=== PATIENT | male | born 1950 | race Caucasian/White ===

== ENCOUNTER 2017-01-31 16:43 | Emergency (ER) | payer MEDICARE, OTHER ==
[2017-01-31] MEDS ORDERED: LIDOCAINE-MPF 1% 5 ML VIAL ONE (17:47)
[2017-01-31] MEDS ORDERED: TETANUS/DIPHTHERIA/PERTUSSIS 0.5 ML SYRINGE IM ONE ×2 (18:07→18:09)
== END 2017-01-31 18:42 | disposition home or self-care (01) ==
DX: S01.01XA Laceration without foreign body of scalp, initial encounter (principal); W22.8XXA Striking against or struck by other objects, initial encounter; Y93.89 Activity, other specified; Y92.009 Unspecified place in unspecified non-institutional (private) residence as the place of occurrence of the external cause; Z23 Encounter for immunization

== ENCOUNTER 2023-03-05 09:03 | Outpatient (CLI) | payer MEDICARE, OTHER ==
--- NOTE | 2023-03-05 16:53 | XRAY Report ---
PROCEDURE: Tib/Fib RT INDICATIONS: CONTUSION OF RT LOWER LEG INITIAL ENCOUNTER TECHNIQUE: 2 views of the tibia and fibula were acquired. COMPARISON: None. FINDINGS: Bones: There is cortical irregularity and possible periosteal reaction involving the medial margin o f the right proximal tibia. This measures approximately This is noted near the medial tibial plateau. No definite fracture seen. Remainder of the osseous 1.9 cm in size. Structures appear intact. Soft tissues: No suspicious soft tissue calcifications or masses. IMPRESSION: Cortical irregularity with possible periosteal reaction involving the proximal right tibia at the lev el of the medial tibial plateau. Recommend correlation with physical examination. Otherwise, no acute fracture seen. Recommend further evaluation with dedicated radiographic evaluation of the right knee. If findings pe rsist, further characterization with cross-sectional imaging using CT or MRI can be considered. Reviewed by: Perez Case MD on 03/05/2023 4:52 PM PDT Approved by: Perez Case MD on 03/05/2023 4:52 PM PDT Station ID: [id number]
== END 2023-03-05 09:04 | disposition home or self-care (01) ==
LOC: DI 09:03
PROVIDERS: ATTEND Family Medicine
DX: S80.11XA Contusion of right lower leg, initial encounter (principal)

== ENCOUNTER 2023-10-08 07:40 | Inpatient (IN) | payer MEDICARE, OTHER ==
--- NOTE | 2023-10-08 07:46 | ED Physician Documentation ---
PD HPI FOCAL NEURO - Stated complaint Stated Complaint: RT SIDE PARALYSIS - History obtained from History obtained from: Patient - History of Present Illness Timing - onset: How many hours ago (1) Timing - duration: Hours (onset at 6:55 this morning, felt okay on first awakening and had onset right hand fumbly and numb while sitting at table, noted clock at 6:55 AM. feels visual acuity off as well.) Timing - details: Abrupt onset, Still present Severity of deficit: Moderate Weakness: Face, Arm, Leg, Right Numbness: Face, Arm, Leg, Right Associated symptoms: No: Headache, Nausea / vomiting, Head injury, Chest pain Contributing factors: negative: Anticoagulated, Atrial fibrillation Baseline status: positive: A&OX3, ambulatory, indep Similar symptoms before: Has not had sx before Review of Systems Constitutional: denies: Fever, Chills Nose: denies: Rhinorrhea / runny nose, Congestion Throat: denies: Sore throat Respiratory: denies: Cough Neurologic: reports: Focal weakness, Numbness, Difficulty speaking. denies: Generalized weakness, Headache, Head injury PD PAST MEDICAL HISTORY - Past Medical History Cardiovascular: High cholesterol Respiratory: None Neuro: None Endocrine/Autoimmune: None, Other - Past Surgical History Past Surgical History: Yes General: Appendectomy - Present Medications Home Medications: Ambulatory Orders Medication Instructions Recorded Confirmed Adalimumab [Humira(Cf) Pen] 40 mg SUBQ .EVERY OTHER WEEK 08/08/23 08/08/23 Atorvastatin [Lipitor] 20 mg PO DAILY 08/08/23 08/08/23 Folic Acid 1 mg PO DAILY 08/08/23 08/08/23 Methotrexate [Methotrexate Sodium] 2.5 mg PO .WEEKLY 08/08/23 08/08/23 Prednisone [Mya] 3 mg PO DAILY 08/08/23 08/08/23 - Allergies Allergies/Adverse Reactions: Allergies Allergy/AdvReac Type Severity Reaction Status Date / Time No Known Drug Allergies Allergy Verified 08/08/23 09:13 - Social History Does the pt smoke?: No Smoking Status: Never smoker Does the pt drink ETOH?: Yes Does the pt have substance abuse?: No - Immunizations Immunizations are current?: No PD ED PE NORMAL - Vitals Vital signs reviewed: Yes - General General: Alert and oriented X 3, No acute distress, Well developed/nourished - HEENT HEENT: Atraumatic - Neck Neck: Supple, no meningeal sign, No adenopathy, No bruit - Cardiac Cardiac: RRR, No murmur - Respiratory Respiratory: No respiratory distress, Clear bilaterally - Abdomen Abdomen: Soft, Non tender - Derm Derm: Normal color, Warm and dry - Neuro Neuro: Other (see NIHSS score. ). No: Normal speech (somewhat thick sounding pronunciation, but content is good. Unlabored breathing. Appears able to swallow saliva. ) Eye Opening: Spontaneous Motor: Obeys Commands Verbal: Oriented GCS Score: 15 NIHSS - Level of Consciousness Level of consciousness: (0) Alert, Keenly responsive LOC Questions: (0) Answers both Q's correct LOC Commands: (0) Performs both correctly - Gaze Best Gaze: (0) Normal - Visual Visual: (3) Bilateral Hemianopia - Facial Palsy Facial Palsy: (1) Minor paralysis - Motor Arms (both separate) Motor Arm (right): (1) Drift Motor Arm (left): (0) No drift - Motor Legs (both separate) Motor Leg (right): (1) Drift Motor Leg (left): (0) No drift - Limb Ataxia Limb Ataxia: (2) Present in 2 limbs - Sensory Sensory: (1) Fsve-xg-ocjicjhq loss - Best Language Best Language: (0) No aphasia - Dysarthria Dysarthria: (1) Cguv-bn-wujdxmhh dysarthria - Extinction and Inattention (formally neg Extinction and inattention: (0) No abnormality - Total Score/Results Total Score/Result: 10 Results - Vitals Vitals: Vital Signs - 24 hr 10/08/23 10/08/23 07:52 08:46 Temperature 36.5 C Heart Rate 80 70 Respiratory 18 18 Rate Blood Pressure 159/100 H 123/86 H O2 Saturation 96 96 Oxygen O2 Source Room air - EKG (time done) 08:38 EKG releavant findings:: EKG personally interpreted by author of this note. Relevant findings are: Rate: Rate (enter#) (64) Rhythm: NSR Lyons: Normal Intervals: Normal MT QRS: Normal Ischemia: Normal ST segments. No: ST elevation c/w ischemia, ST depression - Labs Labs: Laboratory Tests 10/08/23 10/08/23 10/08/23 08:01 08:04 08:04 WBC 7.4 RBC 5.46 Hgb 16.7 Hct 50.9 MCV 93.2 MCH 30.6 MCHC 32.8 RDW 13.4 Plt Count 167 MPV 9.4 Neut # (Auto) 4.9 Lymph # (Auto) 1.6 [place] # (Auto) 0.7 Eos # (Auto) 0.1 Baso # (Auto) 0.1 Absolute Nucleated RBC 0.00 Nucleated RBC % 0.0 Sodium 136 Potassium 3.9 Chloride 105 Carbon Dioxide 26 Anion Gap 5.0 L BUN 17 Creatinine 0.8 Estimated GFR (MDRD) 95 Glucose 133 H POC Whole Bld Glucose 127 H Calcium 9.5 Magnesium 1.7 Total Bilirubin 0.9 AST 30 ALT 36 Alkaline Phosphatase 69 Total Protein 6.3 L Albumin 4.1 Globulin 2.2 Albumin/Globulin Ratio 1.9 Lipase 23 - Rads (name of study) head CT Relevant Findings:: Prelim report reviewed, Discussed with rads (hypodensity area right posterior circulation area c/w acute CVA. no Bleed. ) angio head and neck Relevant Findings:: Prelim report reviewed (no LVO; some diminished flow left posterior circulation. ), EMP independent interpretation of test PD Medical Decision Making - ED course Complexity details: reviewed results, considered differential (Onset of right- sided numbness and weakness along with partial field vision loss this morning. Able to talk in coherent sentences and follow commands. New symptoms for him. Presume acute stroke.), d/w patient, d/w philatelic consultant (Surinder Ulrich, stroke neurologist - not candidate for thrombolytics due to ischemic changes already showing on CT, and no LVO on CTA. treat for CVA. ) ED course: The patient was assessed immediately and sent to CT for CT of the head as well as angiograms. There was already some findings of hypodensity consistent with new infarct on the CT presuming his symptoms were more likely developed through the night and just noticed when he woke this morning. Consult with stroke neurology Dr. Surinder Ulrich felt that this was a contraindication to thrombolytics. There were no large vessel occlusions either so no endovascular intervention. The neurologist did give the go ahead for antiplatelets of both aspirin and Plavix. Continue stroke evaluation. It subsequently did talk with the hospitalist when beds were becoming available in the hospital and orders will be written for the patient. EKG was normal without any signs of fibrillation. There is no heart murmurs. Basic blood tests of CBC and chemistry panel did not show any acute abnormalities. Blood pressure was in a good range and did not need treatment. - Critical Care Time(min): 35 Comments: Acute stroke symptom evaluation with consultation by neurology and consideration of thrombolytic therapy. Time Includes: Direct patient care, Coordinate care, Medical consult Departure - Departure Disposition: 66 [facility] DC/Xfer Clinical Impression: Acute right-sided weakness Cerebrovascular accident (CVA) Qualifiers: CVA mechanism: thrombosis Precerebral and cerebral artery: posterior cerebral artery Condition: Stable
[2023-10-08 08:22] LABS: BASOPHILS # (AUTO) 0.1 10^3/uL (0.0-0.1); BASOPHILS % (AUTO) 0.7 %; EOSINOPHILS # (AUTO) 0.1 10^3/uL (0.0-0.7); EOSINOPHILS % (AUTO) 1.6 %; HCT - HEMATOCRIT 50.9 % (42.0-52.0); HGB - HEMOGLOBIN 16.7 g/dL (14.0-18.0); LYMPHOCYTES # (AUTO) 1.6 10^3/uL (1.5-3.5); LYMPHOCYTES % (AUTO) 21.3 %; MEAN CORPUSCULAR HEMOGLOBIN 30.6 pg (27.0-31.0); MEAN CORPUSCULAR HGB CONC 32.8 g/dL (32.0-36.0); MEAN CORPUSCULAR VOLUME 93.2 fL (80.0-94.0); MEAN PLATELET VOLUME 9.4 fL (7.4-11.4); MONOCYTES # (AUTO) 0.7 10^3/uL (0.0-1.0); MONOCYTES % (AUTO) 9.8 %; NEUTROPHILS # (AUTO) 4.9 10^3/uL (1.5-6.6); NEUTROPHILS % (AUTO) 66.3 %; PLT - PLATELET COUNT 167 10^3/uL (130-450); RED BLOOD COUNT 5.46 10^6/uL (4.70-6.10); RED CELL DISTRIBUTION WIDTH 13.4 % (12.0-15.0); WHITE BLOOD COUNT 7.4 x10^3/uL (4.8-10.8)
[2023-10-08 08:34] LABS: ALBUMIN 4.1 g/dL (3.2-5.5); ALBUMIN/GLOBULIN RATIO 1.9 (1.0-2.2); BILIRUBIN,TOTAL 0.9 mg/dL (0.2-1.0); CALCIUM 9.5 mg/dL (8.5-10.3); CREATININE 0.8 mg/dL (0.6-1.3); MAGNESIUM 1.7 mg/dL (1.7-2.3); POTASSIUM 3.9 mmol/L (3.5-4.5); TOTAL PROTEIN 6.3 g/dL (6.4-8.9)
--- NOTE | 2023-10-08 08:39 | CT Report ---
PROCEDURE: Head W/O Stroke Protocol INDICATIONS: onset right weak/numb 6:55 this AM TECHNIQUE: Noncontrast 4.5 mm thick angled axial sections acquired from the foramen magnum to the vertex, with c oronal reformats. For radiation dose reduction, the following was used: automated exposure control, adjustment of mA and/or kV according to patient size. COMPARISON: None. FINDINGS: Image quality: Excellent. CSF spaces: Basal cisterns are patent. No extra-axial fluid collections. Ventricles are normal in size and shape. Brain: No midline shift. No intracranial masses or hemorrhage. Subacute left GROUP CHIEF OPERATOR distribution infar cts involving the posterior medial left temporal lobe and occipital lobe. There is cytotoxic edema. T he size of the infarcted tissue on axial image 17/2 is approximately 3.6 x 2.2 cm. There is also low density involving the right middle cerebellar peduncle which may also represent focal subacute infarc t. However, cannot exclude edema from a mass. Age-related volume loss and small vessel ischemic rhoades e. Intracranial carotid calcifications. Skull and face: Calvarium and visualized facial bones are intact, without suspicious lesions. Sinuses: Visualized sinuses and mastoids are clear. IMPRESSION: 1. Subacute left GROUP CHIEF OPERATOR distribution infarct. 2. Low density involving the right middle cerebellar peduncle may represent an additional focal subac david infarct. However, cannot exclude edema from mass. Comment: Recommend brain MRI with and without contrast Above discussed with Craig Camacho MD at the time of dictation on 10/08/2023 at 0836 hours. This study fulfills neurological imaging criteria for inclusion or exclusion of acute stroke therapie s based on available published neurological imaging guidelines. Reviewed by: Gab Lainez MD on 10/08/2023 8:38 AM PST Approved by: Gab Lainez MD on 10/08/2023 8:38 AM PST Station ID: [id number]
[2023-10-08] MEDS ORDERED: ASPIRIN CHEW 81 MG TABLET PO STA (09:00)
[2023-10-08] MEDS ORDERED: CLOPIDOGREL 300 MG TABLET PO STA (09:00)
--- NOTE | 2023-10-08 09:07 | XRAY Report ---
PROCEDURE: Chest 1 View X-Ray INDICATIONS: weakness right side this AM TECHNIQUE: One view of the chest was acquired. COMPARISON: None. FINDINGS: Surgical changes and devices: None. Lungs and pleura: No pleural effusions or pneumothorax. Lungs are clear. Mediastinum: Mediastinal contours appear normal. Heart size is normal. Bones and chest wall: No suspicious bony lesions. Overlying soft tissues appear unremarkable. IMPRESSION: No acute cardiopulmonary process. Reviewed by: Gab Lainez MD on 10/08/2023 9:06 AM [facility] Approved by: Gab Lainez MD on 10/08/2023 9:06 AM PST Station ID: [id number]
--- NOTE | 2023-10-08 09:12 | CT Report ---
PROCEDURE: CT Angio Head/Neck INDICATIONS: right weak/numb 6:55 this AM TECHNIQUE: Pre-contrast 4.5 mm thick sections acquired from the foramen magnum to the vertex. After the adminis tration of intravenous contrast, 1 mm thick sections acquired from the aortic arch through the [place]. Post-contrast 4.5 mm thick sections then re-acquired from the foramen magnum to the vert ex. 3-dimensional rvcjbpy-bwjyccohv-fneglvpomt (MIP) and/or volume rendering reformats were acquired of the central intracranial vasculature and neck separately. For radiation dose reduction, the foll owing was used: automated exposure control, adjustment of mA and/or kV according to patient size. COMPARISON: CT head from today. FINDINGS: Image quality: Excellent. BRAIN: CSF spaces: Ventricles are normal in size and shape. Basal cisterns are patent. No extra-axial flu id collections. Brain: A left inferior occipital lobe hypodensity seen on noncontrast scan is consistent with a suba cute infarction. Please see separately dictated CT of the head. No midline shift. No intracranial bl eeds or masses. Maza-white matter interface appears intact. Skull and face: Calvarium and facial bones appear intact, without suspicious lesions. Orbits appear normal. Sinuses: Sinuses and mastoids are clear. HEAD CT ANGIOGRAPHY: Anterior circulation: Intracranial internal carotid arteries are normal in size and flow. There is a single anterior cerebral artery, likely congenital demonstrating distal branches bilaterally. The fl ow within the middle cerebral arteries is normal and symmetric. The anterior communicating artery is seen. No aneurysms are seen. Posterior circulation: Visualized portions of the vertebral arteries demonstrate normal caliber, and join to form a normal appearing basilar artery. Flow within the posterior cerebral arteries is norm al and symmetric. The left posterior cerebral artery derives flow from the anterior circulation, lik snow congenital. No aneurysms are seen. NECK CT ANGIOGRAPHY: Carotid system: The great vessels demonstrate a conventional anatomy as they arise from the aortic a rch. The origins of the common carotid arteries appear patent. The common carotid arteries demonstr ate normal caliber and courses. The bifurcation regions are both widely patent. The internal caroti d arteries demonstrate normal calibers and courses. Posterior circulation: The origins of the vertebral arteries both appear widely patent. The more da silva perior extracranial portions of both vertebral arteries also demonstrate normal courses and calibers. They join to form a normal appearing basilar artery. Soft tissues: Visualized neck soft tissues demonstrate no suspicious abnormalities. Bones: No suspicious bony lesions. Visualized cervical spine appears normally aligned. IMPRESSION: 1. A left COMMUNITY RESOURCE CONSULTANT subacute infarction seen on prior CT is again seen. 2. No large vessel occlusion. 3. 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 The estimate of stenosis included in the report of the imaging study was calculated using the NASCET method Reviewed by: Jaspreet Meneses on 10/08/2023 9:10 AM [facility] Approved by: Jaspreet Meneses on 10/08/2023 9:10 AM [facility] Station ID: [id number]
[2023-10-08] MEDS ORDERED: ONDANSETRON 4 MG/2 ML VIAL IVP PRN (11:07)
[2023-10-08] MEDS ORDERED: SODIUM CHLORIDE FLUSH 0.9% 10 ML SYRINGE IVP PRN (11:07)
[2023-10-08] MEDS ORDERED: ONDANSETRON ODT 4 MG TABLET TL PRN (11:07)
--- NOTE | 2023-10-08 12:14 | HISTORY & PHYSICAL EXAMINATION ---
Chief Complaint - Chief Complaint Chief Complaint: right side paralysis History of Present Illness - Admitted From Admitted From:: home - [facility] History obtained from: [facility] and patient Exam Limitations: none - History of Present Illness HPI Comment/Other: Eduin is a 72 year old man with a history of hypertension and hyperlipidemia without history of DM2, heart disease, alcohol abuse, or tobacco use. he comes in today with right side paralysis that started a 7 am on 10/08. He feels weakness and numbness in his right face, arm, and leg. He headaches but no nausea, weight loss, or fever. His BP during admission is 159/100 while other vitals were within range. His labs come back with slightly elevated glucose (133) with no electrolyte imbalance. Patient head CT, angiograph CT, and MRI sindicate subacute left [employer] DIRECT[employer] WELFARE distribution infarct with late acute or early subacute time course. Chest X ray show no cardiopulmonary process. Patient has a NIHSS of 10. EKG showd normal rate and rhythm with no ST elevation or depressions. The patient is being treated with aspirin and plavix. He is currently being monitored for worsening conditions. History - Past Medical History Cardiovascular: reports: Hypertension, High cholesterol. denies: Congestive heart failure, Coronary artery disease, Peripheral Vascular Disease, Deep vein thrombosis, Pulmonary embolism, Atrial flutter, Atrial fibrillation, Murmur, A rrhythmia, Valve disorder Respiratory: reports: None Neuro: reports: None Endocrine/Autoimmune: reports: None. denies: Type 1 diabetes, Type 2 diabetes, HyPERthyroidism, HyPOthyroidism, Systemic lupus erythematosus GI: reports: None : reports: None HEENT: reports: None Psych: reports: None Musculoskeletal: reports: None Derm: reports: None MRSA Hx?: Yes - Past Surgical History General: reports: Appendectomy - Family & Social History Family History: Mother: Alive and Well, , Father: Alive and Well, , Sister: Alive and Well, Obesity, Brother: Alive and Well, Obesity Family History Comment/Other: dad of heart attack at 57 yr old. Mom of lung and colon cancer at 80 years old. Son and daughter obese, daughter has DM2. 3 brothers and 1 sister all having obesity Living arrangement: At home Living Situation: With spouse/s.o. - Substance History Use: Uses substance without health or social issues: Tobacco (quit wehn he was [age] years old ), Alcohol (2-3 drinks a week) - POLST Patient has POLST: No POLST Status: Full Code Meds/Allgy - Home Medications Home Medications: Ambulatory Orders Medication Instructions Recorded Confirmed Adalimumab [Humira(Cf) Pen] 40 mg SUBQ Q14D 08/08/23 10/08/23 Atorvastatin [Lipitor] 20 mg PO DAILY 08/08/23 10/08/23 Folic Acid 1 mg PO DAILY 08/08/23 10/08/23 Methotrexate [Methotrexate Sodium] 12.5 mg PO FR 08/08/23 10/08/23 Prednisone [Mya] 3 mg PO DAILY 08/08/23 10/08/23 - Allergies Allergies/Adverse Reactions: Allergies Allergy/AdvReac Type Severity Reaction Status Date / Time No Known Drug Allergies Allergy Verified 08/08/23 09:13 Review of Systems - Constitutional Constitutional: reports: Weakness. denies: Fatigue, Fever, Chills, Malaise, Poor appetite, Night sweats, Weight gain, Weight loss - Eyes Eyes: denies: Pain, Irritation, Blurred vision, Spots in vision - Ears, Nose & Throat Ears, Nose & Throat: denies: Ear pain, Hearing loss, Tinnitus - Cardiovascular Cariovascular: denies: Irregular heart rate, Palpitations, Chest pain, Edema, Syncope, Orthopnea - Respiratory Respiratory: reports: Cough (ever since covid). denies: Sputum production, Wheezing, SOB at rest, Apnea - Gastrointestinal Gastrointestinal: reports: Diarrhea (when recieving humira shot). denies: Abdominal pain, Nausea, Vomiting - Genitourinary Genitourinary: denies: Dysuria, Frequency, Urgency - Musculoskeletal Musculoskeletal: reports: Limited range of motion, Muscle weakness. denies: Muscle pain, Back pain, Muscle aches - Integumentary Integumentary: denies: Rash - Neurological Neurological: reports: Headache, Numbness. denies: Memory problems, Incoordination, Slurred speech - Endocrine Endocrine: reports: Intolerance to cold (dyspnea during cold exposure). denies: Polyuria - Hematologic/Lymphatic Hematologic/Lymphatic: denies: Anemia, Bruising, Blood clots Prior Level of Functionality: previously independent. Fixes machinery, does chores, did not use walker. Exam - Vital Signs Vital Signs: Vital Signs x48h Temp Pulse Resp BP Pulse Ox 10/08/23 08:46 70 18 123/86 H 96 10/08/23 07:52 36.5 C 80 18 159/100 H 96 - Physical Exam General Appearance: positive: No acute distress, Alert Eyes Bilateral: positive: Normal inspection, PERRL, EOMI, No scleral icterus ENT: positive: ENT inspection nml, No signs of dehydration Respiratory: positive: Chest non-tender, No respiratory distress, Breath sounds nml Cardiovascular: positive: Regular rate & rhythm, No murmur, No gallop Peripheral Pulses: positive: 2+ Abdomen: positive: Non-tender, No organomegaly, Nml bowel sounds, No distention Skin: positive: Color nml, No rash, Warm, Dry Extremities: positive: Non-tender, Full ROM, Nml appearance, No pedal edema, Other Neurologic/Psychiatric: positive: Oriented x3, Mood/affect nml, Weakness. negative: CN's nml (2-12) (decreased superior and inferior right vision meyers on both eyes. 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 full ROM in upper and lower extremities. 4+ on neurological resistance of right shoulder, elbow, wrist, knee, ankle, and hip. 5+ neurological resistance on left side extremities.), Sensation nml (decrease light sensation in right leg and feet), Facial droop, Slurred/abnml speech Reflexes: Bicep (R): 1+, Bicep (L): 2+, Knee (R): 1+, Knee (L): 2+ Conclusion/Plan - Problem List (1) Cerebrovascular accident (CVA) Conclusion/Plan: 10/[address], angiograph CT, and MRI sindicate subacute left [employer] distribution infarct with late acute or early subacute time course Patient has a NIHSS of 10. EKG showd normal rate and rhythm with no ST elevation or depressions CT indicate ischemic stroke Plan initiate plavix and aspirin Monitor telemetry daily Future echo needed to check for ASD, VSD, A fib (2) Hypertension Conclusion/Plan hypertension BP 154/94 HTN not managed at home plan monitor BP for systolic over 180 (3) Hyperlipidemia Conclusion/Plan Hx of hyperlipidemia. fam hx of obesity and heart attack managed by home medication of atorvastatin plan: continue home dose of atorvastatin (4) Rheumatoid arthritis Conclusion/Plan managed by home medication of Humeira, methotrexate, prednisone, and folic acid. Plan Continue giving home medication of prednisone (5) Headache Conclusion/Plan PRN tylenol and oxycodone Qualifiers: CVA mechanism: thrombosis Precerebral and cerebral artery: posterior cerebral artery - Lab Results Lab results reviewed: Yes Fish Bones: 10/08/23 08:04 10/08/23 08:04 - EKG Results EKG Interpreted Independently: Yes Core Measures - DVT/VTE - Prophylaxis VTE/DVT Device ordered at admit?: Yes - Stroke - Rehab Assessment Rehab services assessment to be ordered?: Yes - AMI - Statin at Admit Aspirin Prescribed on Admit: Yes
--- NOTE | 2023-10-08 14:40 | PHARMACY PROGRESS NOTE ---
- Best Possible Medication History Admit Date and Time: 10/08/23 1107 Processed by: Pharmacy Medication History completed: Yes Patient Interview: Completed Secondary Source(s): Pharmacy records, Insurance records As the person ultimately responsible for medication therapy, providers are able to order a medication from an existing home medication list in [facility] via the "Reconcile Routine" prior to Confirmation of that medication by ict support engineer. Such practice is discouraged except when the physician, in their clinical judgment, deems that a medical need exists for a medication without regard to previous use.
[2023-10-08] MEDS ORDERED: GADOTERATE MEGLUMINE 5 MMOL/10 ML VIAL ONE (16:31)
[2023-10-08] MEDS ORDERED: GADOTERATE MEGLUMINE 10 MMOL/20 ML VIAL ONE (16:31)
[2023-10-08] MEDS ORDERED: iohexoL-300 100 ML VIAL IVP ONE (17:09)
[2023-10-08] MEDS ORDERED: GADOTERATE MEGLUMINE 10 MMOL/20 ML VIAL IVP ONE (17:35)
--- NOTE | 2023-10-08 18:21 | MRI Report ---
PROCEDURE: BRAIN W/WO INDICATIONS: stroke CONTRAST: CLARISCAN 20.6 TECHNIQUE: Noncontrast axial T1 spin echo, axial T2 fast spin echo, sagittal and axial FLAIR, coronal T2 fast sp in echo, axial gradient echo, axial diffusion and ADC through the brain. After the administration of contrast, axial and coronal T1 spin echo with fat saturation through the brain. COMPARISON: Same-day CT FINDINGS: Image quality: Good CSF spaces: Basal cisterns are patent. There is compression of the left lateral ventricle. Volume: Periventricular white matter signal abnormality is commonly seen with chronic microangiopathy . Volume loss is present. These findings are mild. Brain: Acute diffusion restriction is seen at the left thalamus, and medial left temporal occipital l obes. There is wispy enhancement corresponding to the area of infarction. Susceptibility is seen frankie esponding to this area as well. No gross hyperdensity was seen on same-day CT. The adjacent left late ral ventricle Craniofacial structures: No displaced fracture. Sinuses are clear. Orbits are intact. IMPRESSION: Left UPPERS EDGE BURNISHER territory infarction, as suggested on same-day CT. Mild enhancement corresponding to the ter ritory is compatible with a late acute or early subacute time course. There is susceptibility artifac t corresponding to infarct territory, without gross hyperdensity on CT, likely petechial hemorrhage. Consider repeat CT depending on clinical course to determine if there is developing macroscopic hemor rhagic transformation. Reviewed by: Yonis Vidal MD on 10/08/2023 6:20 PM PST Approved by: Yonis Vidal MD on 10/08/2023 6:20 PM PST Station ID: [id number]
[2023-10-08] MEDS: SODIUM CHLORIDE FLUSH 0.9% 10 ML SYRINGE IVP SCH (20:15)
[2023-10-08] MEDS: ATORVASTATIN 40 MG TABLET PO SCH (20:37)
[2023-10-09] MEDS: SODIUM CHLORIDE FLUSH 0.9% 10 ML SYRINGE IVP SCH ×3 (01:26→19:28)
[2023-10-09] MEDS: ACETAMINOPHEN 325 MG TABLET PO PRN ×4 (01:28→15:57)
[2023-10-09 06:04] LABS: CHOL/HDL RATIO 2.7 (<5.0); CHOLESTEROL 117 mg/dL; HDL CHOLESTEROL 43 mg/dL; LDL CHOLESTEROL,CALCULATED 60 mg/dL; LDL/HDL RATIO 1.4 (<3.6); TRIGLYCERIDES 72 mg/dL (48-352); VLDL CHOLESTEROL 14 mg/dL
[2023-10-09] MEDS: predniSONE 5 MG TABLET PO SCH (08:00)
[2023-10-09] MEDS: CLOPIDOGREL 75 MG TABLET PO SCH (08:00)
[2023-10-09] MEDS: ENOXAPARIN 40 MG/0.4 ML SYRINGE SUBQ SCH (08:00)
[2023-10-09] MEDS: oxyCODONE 5 MG TABLET PO PRN ×2 (10:06→15:57)
--- NOTE | 2023-10-09 16:09 | Discharge Plan ---
Discharge Plan Problem Reviewed?: Yes Disposition: 02 Transfer Acute Care Hosp Condition: Stable Prescriptions: Aspirin EC [Ecotrin] 81 mg PO DAILY #100 tablet Clopidogrel [Plavix] 75 mg PO DAILY #19 tab Shower Restrictions: No Driving Restrictions: Yes (none for 6 months) Assistance Devices: Walker No Smoking: If you smoke, Please STOP! Call for help.
--- NOTE | 2023-10-09 16:17 | DISCHARGE SUMMARY ---
"Discharge Summary Admit Date: 10/08/23 Discharge Date: 10/10/23 Discharging Provider: Zoie Smith MD Primary Care Provider: [facility] clinic Code Status: Attempt Resuscitation Condition at Discharge: Stable Discharge Disposition: 02 Transfer Acute Care Hosp - DIAGNOSES Discharge Diagnoses with Status of Each Condition: 1. Stroke 2. Intraparenchymal hemorrhage of brain secondary to #1 3. Hypertension 4. Hyperlipidemia 5. Rheumatoid arthritis 6. Headache - HPI History of Present Illness: Eduin is a 72 year old man with a history of hypertension and hyperlipidemia without history of DM2, heart disease, alcohol abuse, or tobacco use. he comes in today with right side paralysis that started a 7 am on 10/08. He feels weakness and numbness in his right face, arm, and leg. He headaches but no nausea, weight loss, or fever. His BP during admission is 159/100 while other vitals were within range. His labs come back with slightly elevated glucose (133) with no electrolyte imbalance. Patient head CT, angiograph CT, and MRI sindicate subacute left FREIGHT SORTER distribution infarct with late acute or early subacute time course. Chest X ray show no cardiopulmonary process. Patient has a NIHSS of 10. EKG showd normal rate and rhythm with no ST elevation or depressions. The patient is being treated with aspirin and plavix. He is currently being monitored for worsening conditions. - Past Medical History Cardiovascular: reports: Hypertension, High cholesterol. denies: Congestive heart failure, Coronary artery disease, Peripheral Vascular Disease, Deep vein thrombosis, Pulmonary embolism, Atrial flutter, Atrial fibrillation, Murmur, Arrhythmia, Valve disorder Respiratory: reports: None Neuro: reports: None Endocrine/Autoimmune: reports: None. denies: Type 1 diabetes, Type 2 diabetes, HyPERthyroidism, HyPOthyroidism, Systemic lupus erythematosus GI: reports: None : reports: None HEENT: reports: None Psych: reports: None Musculoskeletal: reports: None Derm: reports: None MRSA Hx?: Yes - Past Surgical History General: reports: Appendectomy - CONSULTS | PROCEDURES Procedures: Head CT has subacute left FREIGHT SORTER infarct. There is also a low-density lesion involving the right middle cerebellar peduncle that could be an additional focus of subacute infarct. However cannot exclude edema from mass. Recommend MRI with and without contrast. CT angiogram of the brain has a left FREIGHT SORTER subacute infarct seen again. No large vessel occlusion. A single anterior cerebral artery is most likely congenital. The great vessels in the neck appear patent. Chest x-ray has no acute cardiopulmonary process Brain MRI with and without Clariscan 20.6 has a left FREIGHT SORTER territory infarction. Mild enhancement corresponding to the territories compatible with a late acute or early subacute time course. There is susceptibility artifact corresponding to the infarct territory without gross hyperdensity on CT likely petechial hemorrhage. Consider repeat CT depending on clinical course to determine if the re is developing macroscopic hemorrhagic transformation. Repeat CT of the head done. He has a left FREIGHT SORTER territory infarction with macroscopic hemorrhagic transformation. There is localized mass effect with occipital horn effacement, sulcal effacement, and a patent basal cisterns at this time. - HOSPITAL COURSE Hospital Course: The patient presented as a right hemiplegia, right facial droop, slurred speech. Vision loss. Over the course of 24 to 36 hours this improved tremendously. He still has residual deficit, noticeable on extremity physical exam but facial droop is not really evident.. Speech is normal. He improved much faster than we thought. I had admitted him as a inpatient/2 midnight stay, but he was ready to be discharged under 2 midnights. We offered him home health PT versus outpatient PT. However the patient needs to complete stroke workup which includes an echocardiogram. We are unable to do that at this hospital since we do not have a tech here other than Wednesday through . I told him that with his next PCP visit which is November 01 to make sure that he gets an order for an echo. As we were getting ready for discharge, nursing shared with me that the patient had 2 episodes of spontaneous emesis. The patient had failed to let me know that was going on. And his headache was getting worse. As such I canceled discharge and kept him overnight. The next day he continued to have headache, but blood pressure was stable. Not hypertensive. Mildly bradycardic in the high 50s. In reviewing the MRI, it did recommend repeating the CT if there is clinical deterioration. The patient had improvement in his physical exam not deterioration. He still had vision changes, but dysarthria was gone. Strength in his right arm and leg were better. I repeated the CT of the head and it showed hemorrhagic transformation from the ischemic stroke. I initially called [facility] and they agreed that the patient needed to be transferred and evaluated but since he was already evaluated by telestroke consult with [facility] they recommended I call them first. As such I called [facility] and I spoke to neurosurgery who felt that the patient was appropriate for transfer. I then spoke to neurology who then reviewed the films and felt the patient was appropriate for transfer. I explained all of this to the patient. While he was having changes on his CAT scan of bleeding, he was not clinically worsening. My hope was that the bleeding would stop and he just needed to be observed. However I did explain what possible surgical intervention would be for him. He was on dual platelet therapy while here.The patient is already on a statin for hyperlipidemia. Fasting lipid panel here had a triglyceride of 72, cholesterol 117, LDL 60, VLDL 14 and HDL 43. Telemetry during this time did not have any arrhythmias. He is transferred in stable condition. Temperature is 37.1. Heart rate 54. Blood pressure 143/77. Respirations 22. 95% on room air. The neurologist did recommend that the patient get labetalol as needed while under my care if his systolic went above 160. And to stop Plavix and aspirin. He is complaining of headache behind his left eyeball. Sclera slightly injected. He says that his eyeball does not hurt it is retro-orbital. Neck is supple. Lungs are clear to auscultation and percussion. PMI is normally placed with a regular rate and rhythm. Abdomen is soft, nontender. Extremities are without edema. Neurological exam shows an alert oriented patient to person place and situation. Speech is normal. No facial droop. He has subtle loss of strength in the right arm which is markedly better than he was last night when I admitted him. He is a [id number] male and right hand shows approximately 4/5 strength. Lifting his right arm is about 3+/5. Right leg is 3+ to 4/5. Greater than 30 minutes was spent coordinating discharge. He is still working full-time. 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 I did offer him a letter for his job. But he left via air ambulance before I can get that letter to them. I am hoping that the receiving physicians at the receiving hospital will do that letter for him. This document was made in part using voice recognition software. While efforts are made to proofread this document, sound alike and grammatical errors may occur. - ALLERGIES Allergies/Adverse Reactions: Allergies Allergy/AdvReac Type Severity Reaction Status Date / Time No Known Drug Allergies Allergy Verified 08/08/23 09:13 - MEDICATIONS Home Medications: Ambulatory Orders Medication Instructions Recorded Confirmed Adalimumab [Humira(Cf) Pen] 40 mg SUBQ Q14D 08/08/23 10/08/23 Atorvastatin [Lipitor] 20 mg PO DAILY 08/08/23 10/08/23 Folic Acid 1 mg PO DAILY 08/08/23 10/08/23 Methotrexate [Methotrexate Sodium] 12.5 mg PO FR 08/08/23 10/08/23 Prednisone [Mya] 3 mg PO DAILY 08/08/23 10/08/23 Aspirin EC [Ecotrin] 81 mg PO DAILY #100 tablet 10/09/23 Clopidogrel [Plavix] 75 mg PO DAILY #19 tab 10/09/23 - LABS Result Diagrams: 10/08/23 08:04 10/08/23 08:04"
--- NOTE | 2023-10-09 16:41 | PROVIDER PROGRESS NOTE ---
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 EKG showd normal rate and rhythm with no ST elevation or depressions CT indicate ischemic stroke Plan initiate plavix and aspirin Monitor telemetry daily Future echo needed to check for ASD, VSD, A fib (2) Hypertension Conclusion/Plan hypertension BP 148/80 HTN not managed at home plan monitor BP for systolic over 180 (3) Hyperlipidemia Conclusion/Plan Hx of hyperlipidemia. fam hx of obesity and heart attack labs show normal lipid panel values managed by home medication of atorvastatin plan: continue home dose of atorvastatin (4) Rheumatoid arthritis Conclusion/Plan managed by home medication of Humeira, methotrexate, prednisone, and folic acid. Plan Continue giving home medication of prednisone (5) Headache Conclusion/Plan Nausea with 2 instances of vomiting 5/10 headache with pressures behind his left eye plan PRN tylenol and oxycodone given caffeine monitor for symptoms for increased intracranial pressure Qualifiers: CVA mechanism: thrombosis Precerebral and cerebral artery: posterior cerebral artery - Current Meds Current Meds: Current Medications Generic Name Dose Route Start Last Admin Trade Name Freq PRN Reason Stop Dose Admin Acetaminophen 650 mg 10/08/23 11:07 10/09/23 15:57 Acetaminophen 325 Mg Tablet PO 650 mg Q4HR PRN Administration Pain 1 to 4, or Fever Atorvastatin Calcium 40 mg 10/08/23 21:00 10/08/23 20:37 Atorvastatin 40 Mg Tablet PO 40 mg QPM ANGE Administration Clopidogrel Bisulfate 75 mg 10/09/23 09:00 10/09/23 08:00 Clopidogrel 75 Mg Tablet PO 75 mg DAILY ANGE Administration Enoxaparin Sodium 40 mg 10/09/23 09:00 10/09/23 08:00 Enoxaparin 40 Mg/0.4 Ml Syringe SUBQ 40 mg DAILY ANGE Administration Ondansetron HCl 4 mg 10/08/23 11:07 10/09/23 10:06 Ondansetron 4 Mg/2 Ml Vial IVP 4 mg Q6HR PRN Administration Nausea / Vomiting Oxycodone HCl 5 mg 10/08/23 11:07 10/09/23 15:57 Oxycodone 5 Mg Tablet PO 5 mg Q4HR PRN Administration Pain 5 to 7 Prednisone 2.5 mg 10/09/23 08:00 10/09/23 08:00 Prednisone 5 Mg Tablet PO 2.5 mg DAILYWM ANGE Administration Sodium Chloride 10 ml 10/08/23 17:00 10/09/23 08:01 Sodium Chloride Flush 0.9% 10 Ml Syringe IVP 10 ml 0100,0900,1700 ANGE Administration - Lab Result Fish Bone Diagrams: 10/08/23 08:04 10/08/23 08:04 - EKG Results EKG Interpreted Independently: No - Additional Planning Condition/Complexity: Stable Plan Discussed with:: Spouse Time Spent: 31-60 minutes Subjective - Subjective Patient Reports: Headache (5/10 pain behind right eye), Nausea (2 instances of vomiting), Pain Objective Vital Signs: Vital Signs - 24 hr 10/08/23 10/08/23 10/09/23 18:53 21:00 00:24 Temperature 36.5 C 37.0 C 36.9 C Heart Rate [ Brachial] Heart Rate [ 64 86 82 Monitoring electrodes] Respiratory 20 24 16 Rate Blood Pressure 140/75 H 133/65 H [Left Brachial artery] Blood Pressure 128/66 [Right Brachial artery] O2 Saturation 97 93 94 10/09/23 10/09/23 10/09/23 04:05 08:16 13:00 Temperature 36.5 C 36.6 C 36.7 C Heart Rate [ Brachial] Heart Rate [ 79 79 69 Monitoring electrodes] Respiratory 20 20 20 Rate Blood Pressure 144/88 H [Left Brachial artery] Blood Pressure 152/82 H 148/80 H [Right Brachial artery] O2 Saturation 94 94 95 10/09/23 15:54 Temperature 36.9 C Heart Rate [ 63 Brachial] Heart Rate [ Monitoring electrodes] Respiratory 20 Rate Blood Pressure 128/69 [Left Brachial artery] Blood Pressure [Right Brachial artery] O2 Saturation 94 Oxygen O2 Source Room air I&O (Last 24 Hrs): Intake and Output Totals x24h 10/07/23 10/08/23 10/09/23 23:59 23:59 23:59 Intake Total 750 440 Output Total 150 Balance 600 440 General: Alert, Oriented x3, Cooperative, No acute distress, Mild distress (older white man laying in bed with arms above his head complaining of not being able to sit in the chair due to his BOURNE) HEENT: Atraumatic, PERRLA, EOMI, Mucous membr. moist/pink, Other (no icterus) Neck: Supple, No JVD Neuro: Alert, CN 2-12 Grossly Intact (decreased superior and inferior right vision meyers on both eyes. 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 full ROM in upper and lower extremities. 4+ on neurological resistance of right shoulder, elbow, wrist, knee, ankle, and hip. 5+ neurological resistance on left side extremities. decrease light sensation in right leg and feet) Cardiovascular: Regular rate, Normal S1, Normal S2, No murmurs Respiratory: Chest non-tender, No respiratory distress, Breath sounds nml Abdomen: Normal bowel sounds, Soft, No tenderness, No hepatospenomegaly, No masses Extremities: No clubbing, No cyanosis, No edema, Normal pulses, No tenderness/swelling Skin: No rashes, No breakdown, No significant lesion - Results Results: Laboratory Results WBC 7.4 x10^3/uL (4.8-10.8) 10/08/23 08:04 RBC 5.46 10^6/uL (4.70-6.10) 10/08/23 08:04 Hgb 16.7 g/dL (14.0-18.0) 10/08/23 08:04 Hct 50.9 % (42.0-52.0) 10/08/23 08:04 MCV 93.2 fL (80.0-94.0) 10/08/23 08:04 MCH 30.6 pg (27.0-31.0) 10/08/23 08:04 MCHC 32.8 g/dL (32.0-36.0) 10/08/23 08:04 RDW 13.4 % (12.0-15.0) 10/08/23 08:04 Plt Count 167 10^3/uL (130-450) 10/08/23 08:04 MPV 9.4 fL (7.4-11.4) 10/08/23 08:04 Neut # (Auto) 4.9 10^3/uL (1.5-6.6) 10/08/23 08:04 Lymph # (Auto) 1.6 10^3/uL (1.5-3.5) 10/08/23 08:04 [place] # (Auto) 0.7 10^3/uL (0.0-1.0) 10/08/23 08:04 Eos # (Auto) 0.1 10^3/uL (0.0-0.7) 10/08/23 08:04 Baso # (Auto) 0.1 10^3/uL (0.0-0.1) 10/08/23 08:04 Absolute Nucleated RBC 0.00 x10^3/uL 10/08/23 08:04 Nucleated RBC % 0.0 /100WBC 10/08/23 08:04 Sodium 136 mmol/L (135-145) 10/08/23 08:04 Potassium 3.9 mmol/L (3.5-4.5) 10/08/23 08:04 Chloride 105 mmol/L (101-111) 10/08/23 08:04 Carbon Dioxide 26 mmol/L (21-32) 10/08/23 08:04 Anion Gap 5.0 (6-13) L 10/08/23 08:04 BUN 17 mg/dL (6-20) 10/08/23 08:04 Creatinine 0.8 mg/dL (0.6-1.3) 10/08/23 08:04 Estimated GFR (MDRD) 95 (>89) 10/08/23 08:04 Glucose 133 mg/dL (74-104) H 10/08/23 08:04 POC Whole Bld Glucose 127 mg/dL (70 - 100) H 10/08/23 08:01 Calcium 9.5 mg/dL (8.5-10.3) 10/08/23 08:04 Magnesium 1.7 mg/dL (1.7-2.3) 10/08/23 08:04 Total Bilirubin 0.9 mg/dL (0.2-1.0) 10/08/23 08:04 AST 30 IU/L (10-42) 10/08/23 08:04 ALT 36 IU/L (10-60) 10/08/23 08:04 Alkaline Phosphatase 69 IU/L (42-121) 10/08/23 08:04 Total Protein 6.3 g/dL (6.4-8.9) L 10/08/23 08:04 Albumin 4.1 g/dL (3.2-5.5) 10/08/23 08:04 Globulin 2.2 g/dL (2.1-4.2) 10/08/23 08:04 Albumin/Globulin Ratio 1.9 (1.0-2.2) 10/08/23 08:04 Triglycerides 72 mg/dL (48-352) 10/09/23 05:29 Cholesterol 117 mg/dL (-200) 10/09/23 05:29 LDL Cholesterol, Calc 60 mg/dL (-129) 10/09/23 05:29 VLDL Cholesterol 14 mg/dL 10/09/23 05:29 HDL Cholesterol 43 mg/dL (60-) L 10/09/23 05:29 LDL/HDL Ratio 1.4 (<3.6) 10/09/23 05:29 Cholesterol/HDL Ratio 2.7 (<5.0) 10/09/23 05:29 Lipase 23 U/L (11-82) 10/08/23 08:04 ABX Reporting Has patient been on IV antibiotics over the past 48 hours?: No
[2023-10-09] MEDS: ATORVASTATIN 40 MG TABLET PO SCH (20:52)
[2023-10-10] MEDS: SODIUM CHLORIDE FLUSH 0.9% 10 ML SYRINGE IVP SCH ×3 (00:28→16:31)
[2023-10-10] MEDS: ACETAMINOPHEN 325 MG TABLET PO PRN ×2 (00:37→11:58)
[2023-10-10] MEDS: oxyCODONE 5 MG TABLET PO PRN ×3 (01:17→13:27)
[2023-10-10] MEDS: ENOXAPARIN 40 MG/0.4 ML SYRINGE SUBQ SCH (08:48)
[2023-10-10] MEDS: predniSONE 5 MG TABLET PO SCH (08:48)
[2023-10-10] MEDS: CLOPIDOGREL 75 MG TABLET PO SCH (08:48)
[2023-10-10] MEDS ORDERED: polyethylene glycoL 3350 17 GM PACKET PO SCH (09:00)
--- NOTE | 2023-10-10 11:22 | PROVIDER PROGRESS NOTE ---
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 EKG showd normal rate and rhythm with no ST elevation or depressions 10/09 CT indicate ischemic stroke Continues to have BOURNE with pain behind left eye with Tylenol and oxy. Patient will be monitored for another day for hemorrhagic stroke conversion. Plan continue plavix and aspirin repeat CT today Monitor telemetry daily. monitor for hemorrhagic stroke Future echo needed to check for ASD, VSD, A fib (2) Headache Conclusion/Plan Nausea with 1 instances of vomiting overnight After pain med> 2/10 headache with pressures behind his left eye plan PRN tylenol and oxycodone monitor for hemorrhagic stroke (3) Hypertension Conclusion/Plan hypertension BP 111-146/64-86 No hx of HTN. No home HTN medication plan monitor BP for systolic over 180 (4) Hyperlipidemia Conclusion/Plan Hx of hyperlipidemia. fam hx of obesity and heart attack labs show normal lipid panel values managed by home medication of atorvastatin plan: continue home dose of atorvastatin (5) Rheumatoid arthritis Conclusion/Plan managed by home medication of Humeira, methotrexate, prednisone, and folic acid. Plan Continue giving home medication of prednisone - Current Meds Current Meds: Current Medications Generic Name Dose Route Start Last Admin Trade Name Ashwinq PRN Reason Stop Dose Admin Acetaminophen 650 mg 10/08/23 11:07 10/10/23 00:37 Acetaminophen 325 Mg Tablet PO 650 mg Q4HR PRN Administration Pain 1 to 4, or Fever Atorvastatin Calcium 40 mg 10/08/23 21:00 10/09/23 20:52 Atorvastatin 40 Mg Tablet PO 40 mg QPM ANGE Administration Clopidogrel Bisulfate 75 mg 10/09/23 09:00 10/10/23 08:48 Clopidogrel 75 Mg Tablet PO 75 mg DAILY ANGE Administration Enoxaparin Sodium 40 mg 10/09/23 09:00 10/10/23 08:48 Enoxaparin 40 Mg/0.4 Ml Syringe SUBQ 40 mg DAILY ANGE Administration Ondansetron HCl 4 mg 10/08/23:07 10/09/23 10:06 Ondansetron 4 Mg/2 Ml Vial IVP 4 mg Q6HR PRN Administration Nausea / Vomiting Oxycodone HCl 5 mg 10/08/23 11:07 10/10/23 09:00 Oxycodone 5 Mg Tablet PO 5 mg Q4HR PRN Administration Pain 5 to 7 Polyethylene Glycol 17 gm 10/10/23 09:00 10/10/23 08:48 Polyethylene Glycol 3350 17 Gm Packet PO Not Given DAILY ANGE Prednisone 2.5 mg 10/09/23 08:00 10/10/23 08:48 Prednisone 5 Mg Tablet PO 2.5 mg DAILYWM ANGE Administration Sodium Chloride 10 ml 10/08/23 17:00 10/10/23 08:49 Sodium Chloride Flush 0.9% 10 Ml Syringe IVP 10 ml 0100,0900,1700 ANGE Administration - Lab Result Fish Bone Diagrams: 10/08/23 08:04 10/08/23 08:04 - Additional Planning Time Spent: 15-30 minutes Subjective - Subjective Patient Reports: Dizzines (when getting up from the bed), Headache (behind left eye 2/10 after meds), Nausea (1 instance of vomiting after breakfast. able to eat toast after) Objective Vital Signs: Vital Signs - 24 hr 10/09/23 10/09/23 10/09/23 13:00 15:54 20:05 Temperature 36.7 C 36.9 C 36.4 C L Heart Rate [ 63 67 Brachial] Heart Rate [ 69 Monitoring electrodes] Respiratory 20 20 20 Rate Blood Pressure 144/88 H 128/69 111/64 [Left Brachial artery] Blood Pressure [Right Brachial artery] O2 Saturation 95 94 94 10/10/23 10/10/23 10/10/23 00:10 04:56 08:54 Temperature 36.5 C 36.5 C 36.4 C L Heart Rate [ 59 L Brachial] Heart Rate [ 66 63 Monitoring electrodes] Respiratory 16 18 19 Rate Blood Pressure 113/64 146/86 H [Left Brachial artery] Blood Pressure 144/76 H [Right Brachial artery] O2 Saturation 94 94 95 Oxygen O2 Source Room air I&O (Last 24 Hrs): Intake and Output Totals x24h 10/08/23 10/09/23 10/10/23 23:59 23:59 23:59 Intake Total 750 1580 10 Output Total 150 0 Balance 600 1580 10 General: Alert, Oriented x3, Cooperative, No acute distress, Other (old white man laying in bed comfortably) HEENT: Atraumatic, PERRLA, EOMI, Mucous membr. moist/pink, Other (no icterus) Neck: Supple, No JVD Neuro: Alert, CN 2-12 Grossly Intact, Oriented Times 3, Other (hemiplegia - decreased vision on right side. right side pronator drift. right arm weakness) Cardiovascular: Regular rate, Normal S1, Normal S2, No murmurs Respiratory: Chest non-tender, No respiratory distress, Breath sounds nml Abdomen: Normal bowel sounds, Soft, No tenderness, No hepatospenomegaly, No masses Extremities: No clubbing, No cyanosis, No edema, Normal pulses, No tenderness/swelling Skin: No rashes, No breakdown, No significant lesion - Results Results: Laboratory Results WBC 7.4 x10^3/uL (4.8-10.8) 10/08/23 08:04 RBC 5.46 10^6/uL (4.70-6.10) 10/08/23 08:04 Hgb 16.7 g/dL (14.0-18.0) 10/08/23 08:04 Hct 50.9 % (42.0-52.0) 10/08/23 08:04 MCV 93.2 fL (80.0-94.0) 10/08/23 08:04 MCH 30.6 pg (27.0-31.0) 10/08/23 08:04 MCHC 32.8 g/dL (32.0-36.0) 10/08/23 08:04 RDW 13.4 % (12.0-15.0) 10/08/23 08:04 Plt Count 167 10^3/uL (130-450) 10/08/23 08:04 MPV 9.4 fL (7.4-11.4) 10/08/23 08:04 Neut # (Auto) 4.9 10^3/uL (1.5-6.6) 10/08/23 08:04 Lymph # (Auto) 1.6 10^3/uL (1.5-3.5) 10/08/23 08:04 [place] # (Auto) 0.7 10^3/uL (0.0-1.0) 10/08/23 08:04 Eos # (Auto) 0.1 10^3/uL (0.0-0.7) 10/08/23 08:04 Baso # (Auto) 0.1 10^3/uL (0.0-0.1) 10/08/23 08:04 Absolute Nucleated RBC 0.00 x10^3/uL 10/08/23 08:04 Nucleated RBC % 0.0 /100WBC 10/08/23 08:04 Sodium 136 mmol/L (135-145) 10/08/23 08:04 Potassium 3.9 mmol/L (3.5-4.5) 10/08/23 08:04 Chloride 105 mmol/L (101-111) 10/08/23 08:04 Carbon Dioxide 26 mmol/L (21-32) 10/08/23 08:04 Anion Gap 5.0 (6-13) L 10/08/23 08:04 BUN 17 mg/dL (6-20) 10/08/23 08:04 Creatinine 0.8 mg/dL (0.6-1.3) 10/08/23 08:04 Estimated GFR (MDRD) 95 (>89) 10/08/23 08:04 Glucose 133 mg/dL (74-104) H 10/08/23 08:04 POC Whole Bld Glucose 127 mg/dL (70 - 100) H 10/08/23 08:01 Calcium 9.5 mg/dL (8.5-10.3) 10/08/23 08:04 Magnesium 1.7 mg/dL (1.7-2.3) 10/08/23 08:04 Total Bilirubin 0.9 mg/dL (0.2-1.0) 10/08/23 08:04 AST 30 IU/L (10-42) 10/08/23 08:04 ALT 36 IU/L (10-60) 10/08/23 08:04 Alkaline Phosphatase 69 IU/L (42-121) 10/08/23 08:04 Total Protein 6.3 g/dL (6.4-8.9) L 10/08/23 08:04 Albumin 4.1 g/dL (3.2-5.5) 10/08/23 08:04 Globulin 2.2 g/dL (2.1-4.2) 10/08/23 08:04 Albumin/Globulin Ratio 1.9 (1.0-2.2) 10/08/23 08:04 Triglycerides 72 mg/dL (48-352) 10/09/23 05:29 Cholesterol 117 mg/dL (-200) 10/09/23 05:29 LDL Cholesterol, Calc 60 mg/dL (-129) 10/09/23 05:29 VLDL Cholesterol 14 mg/dL 10/09/23 05:29 HDL Cholesterol 43 mg/dL (60-) L 10/09/23 05:29 LDL/HDL Ratio 1.4 (<3.6) 10/09/23 05:29 Cholesterol/HDL Ratio 2.7 (<5.0) 10/09/23 05:29 Lipase 23 U/L (11-82) 10/08/23 08:04 ABX Reporting Has patient been on IV antibiotics over the past 48 hours?: No
[2023-10-10] MEDS ORDERED: ASPIRIN EC 81 MG TABLET PO SCH (13:00)
--- NOTE | 2023-10-10 13:44 | CT Report ---
PROCEDURE: HEAD WO INDICATIONS: headache w risk of hemorrhagic convergence from CV TECHNIQUE: Noncontrast 4.5 mm thick angled axial sections acquired from the foramen magnum to the vertex. For r adiation dose reduction, the following was used: automated exposure control, adjustment of mA and/or kV according to patient size. COMPARISON: 10/08/2023 CT and MRI FINDINGS: Image quality: Good CSF spaces: Basal cisterns remain patent. There is compression of the left occipital horn, increased from prior however. There is also left sulcal effacement. Volume: Vascular calcifications. Periventricular white matter disease is commonly seen with chronic m icroangiopathy. Volume loss is present. These findings are mild to moderate. Brain: Left [employer] territory infarction with hemorrhagic transformation. Craniofacial structures: No displaced fracture. IMPRESSION: Left [employer] territory infarction with macroscopic hemorrhagic transformation. There is localized mass ef fect with occipital horn effacement and sulcal effacement, with patent basal cisterns at this time. C onsider surveillance imaging. Reviewed by: Yonis Vidal MD on 10/10/2023 1:43 PM PST Approved by: Yonis Vidal MD on 10/10/2023 1:43 PM PST Station ID: [id number]
[2023-10-10 15:15] LABS: PARTIAL THROMBOPLASTIN TIME 31.7 secs (24.9-33.3)
[2023-10-10 15:20] LABS: INR 1.1 (0.8-1.2); PT - PROTHROMBIN TIME 12.5 secs (9.9-12.6)
[2023-10-10 16:56] VITALS: BP 143/77; O2SAT 95
== END 2023-10-10 18:05 | disposition short-term general hospital (02) | DRG 64 ==
LOC: ED 07:40 → MS2 11:07
PROVIDERS: ADMIT Specialist; ATTEND Specialist
DX: I63.332 Cerebral infarction due to thrombosis of left posterior cerebral artery (principal); H54.7 Unspecified visual loss; H53.47 Heteronymous bilateral field defects; R27.0 Ataxia, unspecified; I61.8 Other nontraumatic intracerebral hemorrhage; G81.91 Hemiplegia, unspecified affecting right dominant side; E78.00 Pure hypercholesterolemia, unspecified; R47.1 Dysarthria and anarthria; R29.710 NIHSS score 10; H53.9 Unspecified visual disturbance; I10 Essential (primary) hypertension; E78.5 Hyperlipidemia, unspecified; M06.9 Rheumatoid arthritis, unspecified; R51.9 Headache, unspecified; R00.1 Bradycardia, unspecified; Z87.891 Personal history of nicotine dependence; R11.10 Vomiting, unspecified; R29.810 Facial weakness
CPT/HCPCS: 36415; 70450; 70496; 70498; 70553; 71045; 80053; 80061; 83690; 83735; 85025; 85610; 85730; 93005; 97116; 97161; 99285; 99291; A9270; A9575; J1650; J7512; Q9967; 83721